=== PATIENT | female | born 1960 | race Caucasian/White ===

== ENCOUNTER 2024-05-03 17:40 | Emergency (ER) | payer OTHER, SELFPAY ==
[2024-05-03] VITALS (10 sets, daily range): BP systolic 118–134; BP diastolic 61–85; PULSE 77–89; RESP 14–28; TEMP 36.8; O2SAT 96–99
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
[2024-05-03 19:29] LABS: Alanine Aminotransferase 19 IU/L (<35); Albumin 4.4 g/dL (3.5-5.0); Albumin Globulin Ratio 1.2 (1.0-2.8); Alkaline Phosphatase 63 U/L (38-126); Aspartate Aminotransferase 35 IU/L (14-36); BUN Creatinine Ratio 24.7 (6-22); Bilirubin Total 0.7 mg/dL (0.2-1.3); Blood Urea Nitrogen 20 mg/dL (7-17); Calcium 9.4 mg/dL (8.4-10.2); Carbon Dioxide 21 mmol/L (22-32); Chloride 105 mmol/L (98-107); Estimated Glomerular Filt Rate > 60 mL/min (>60); Globulin 3.7 g/dL (1.7-4.1); Glucose 93 mg/dL (80-110); HEMOLYSIS 53 (0-50); Lipase 151 U/L (23-300); Potassium 4.2 mmol/L (3.4-5.1); Sodium 135 mmol/L (137-145); Total Protein 8.1 g/dL (6.3-8.2)
[2024-05-03 19:37] LABS: Add Manual Diff / Slide Review NO; Basophils Absolute Auto 0 /uL (0-100); Basophils Percent Auto 0.4 % (0-2); Eosinophils Absolute Auto 100 /uL (0-450); Eosinophils Percent Auto 1.7 % (2-4); Hematocrit 43.3 % (36-46); Hemoglobin 14.4 g/dL (12.0-16.0); Lymphocytes Absolute Auto 2500 /uL (1100-4500); Lymphocytes Percent Auto 29.3 % (25-40); Mean Corpuscular HGB Conc 33.3 % (30-36); Monocytes Absolute Auto 500 /uL (0-900); Monocytes Percent Auto 6.1 % (3-14); Neutrophils Absolute Auto 5300 /uL (1500-7000); Neutrophils Percent Auto 62.5 % (50-75); Platelet Count 223 X10^3/uL (150-400); Red Blood Cell Count 4.98 X10^6/uL (4.0-5.2); Red Cell Distribution Width 13.3 % (11.6-14.8); White Blood Cell Count 8.5 X10^3/uL (4.5-11.0)
[2024-05-03] MEDS: ONDANSETRON 4 MG/2 ML INJ IV (19:41)
[2024-05-03] MEDS: MORPHINE 4 MG/ML INJ IV (19:41)
[2024-05-03 19:42] LABS: Prothrombin Time 11.6 SECONDS (9.4-12.5)
[2024-05-03 19:46] LABS: Lactate (Lactic Acid) 0.9 mmol/L (0.7-2.1)
[2024-05-03] MEDS: HYDROCODONE/ACET 5/325 PREPACK 1 BOTTLE MISC (22:01)
== END 2024-05-03 22:02 | disposition home or self-care (01) ==
PROVIDERS: Emergency Provider Emergency Medicine
DX: R10.10 Upper abdominal pain, unspecified (principal); M25.532 Pain in left wrist; M25.531 Pain in right wrist; M79.605 Pain in left leg; M79.604 Pain in right leg; V79.9XXA Bus occupant (driver) (passenger) injured in unspecified traffic accident, initial encounter
CPT/HCPCS: 36415; 74177; 80053; 83605; 83690; 85025; 85610; 96374; 96375; 99284; J2270; J2405; Q9967